=== PATIENT | female | born 1980 | race Caucasian/White ===

== ENCOUNTER 2018-03-27 09:39 | Emergency (ER) | payer BC ==
[~2018-03-27] VITALS: Ht 170.2 cm; Wt 86.4 kg
[2018-03-27 09:53] VITALS: TEMP 98.5
[2018-03-27] MEDS ORDERED: PROZAC 10MG10 MG PO (10:08)
[2018-03-27] MEDS ORDERED: PRINIVIL10 MG PO (10:08)
[2018-03-27] MEDS ORDERED: AMBIEN 5MG TABLE5 MG PO (10:09)
[2018-03-27] MEDS ORDERED: ZOFRAN ODT4 MG PO (14:25)
[2018-03-27] MEDS ORDERED: FIORICET 325 MG1 TA1 PO (14:25)
[2018-03-27] MEDS ORDERED: PHENERGAN 25 TA25 MG PO (14:25)
[2018-03-27 14:39] VITALS: BP 154/96; PULSE 78
== END 2018-03-27 14:39 | disposition home or self-care (01) ==
LOC: COL.ER 09:39
DX: G43.909 Migraine, unspecified, not intractable, without status migrainosus (principal); Z90.710 Acquired absence of both cervix and uterus
CPT/HCPCS: J1100; J1200; J1885; J2405; J2550; J3010; J7030; J7050

== ENCOUNTER 2018-07-28 13:48 | Emergency (ER) | payer BC ==
[~2018-07-28] VITALS: Ht 172.7 cm; Wt 81.9 kg
[~2018-07-28 13:48] MED LIST: AMBIEN 5MG TABLE5 MG PO; FIORICET 325 MG1 TA1 PO; PHENERGAN 25 TA25 MG PO; PRINIVIL10 MG PO; PROZAC 10MG10 MG PO; ZOFRAN ODT4 MG PO
[2018-07-28 13:53] VITALS: BP 148/104; TEMP 97.3
[2018-07-28 16:00] VITALS: PULSE 90
== END 2018-07-28 16:00 | disposition home or self-care (01) ==
LOC: COL.ER 13:48
DX: M62.830 Muscle spasm of back (principal); M54.5 Low back pain; G89.29 Other chronic pain; F41.9 Anxiety disorder, unspecified; I10 Essential (primary) hypertension; G47.00 Insomnia, unspecified; M51.36 Other intervertebral disc degeneration, lumbar region; Z79.899 Other long term (current) drug therapy
CPT/HCPCS: J1885

== ENCOUNTER 2019-03-13 09:22 | Emergency (ER) | payer OTHER ==
[~2019-03-13] VITALS: Ht 170.2 cm; Wt 77.3 kg
[2019-03-13] MEDS ORDERED: MASON NATURAL2000 IU PO (09:42)
[2019-03-13] MEDS ORDERED: XANAX .25M0.25 MG/TA PO (09:43)
[2019-03-13 10:31] LABS: BASO # 0.1 (0.0-0.2); BASO % 0.7 % (0.0-2.0); EOS # 0.1 (0.0-0.7); EOS % 1.3 % (0-4.0); GRAN # 4.2 (1.4-6.5); HEMATOCRIT 47.7 % (37.0-47.0); HEMOGLOBIN 16.5 g/dl (12.5-16.0); LYMPH # 1.9 (1.2-3.4); LYMPH % 28.5 % (20.0-51.0); MEAN CELL VOLUME 85 fl (80.0-100.0); MEAN CORPUSCULAR HEMOGLOBIN 29 pg (27.0-31.0); MEAN CORPUSCULAR HGB CONC 35 g/dl (33.0-37.0); MEAN PLATELET VOLUME 10.7 fl (7.4-10.4); MONO # 0.4 (0.1-0.6); MONO % 5.2 % (1.7-9.3); PLATELET COUNT 327 K/mm3 (130-400); RED BLOOD COUNT 5.64 M/mm3 (4.10-5.30); REDCELL DISTRIBUTION WIDTH-CV 12.7 % (11.5-14.5)
[2019-03-13 10:45] LABS: C-REACTIVE PROTEIN 1.1 mg/dL (0.0-0.9); CALCIUM 9.2 mg/dL (8.4-10.2); CREATININE, serum 0.63 (0.52-1.25); POTASSIUM 4.2 mmol/L (3.4-5.0)
[2019-03-13 11:03] LABS: ERYTHROCYTE SEDIMENTATION RATE 7 mm/hr (0-20)
[2019-03-13 11:41] VITALS: BP 145/77; PULSE 105; TEMP 98.7
== END 2019-03-13 12:09 | disposition home or self-care (01) ==
LOC: COL.ER 09:22
PROVIDERS: Physician Assistant
DX: M54.5 Low back pain (principal); Z90.710 Acquired absence of both cervix and uterus
CPT/HCPCS: J1885; J2405; J3010

== ENCOUNTER → 2019-04-20 | Outpatient (CLI) | payer OTHER ==
[~2019-04-20] MED LIST changes: +MASON NATURAL2000 IU PO; +XANAX .25M0.25 MG/TA PO
== END ==
LOC: COL.RAD 07:53
DX: I87.8 Other specified disorders of veins (principal); H93.A2 Pulsatile tinnitus, left ear
CPT/HCPCS: Q9967

== ENCOUNTER → 2019-05-12 | Outpatient (CLI) | payer OTHER | LOC: MC.RAD 07:52 | DX: Z12.31 Encounter for screening mammogram for malignant neoplasm of breast (principal); Z80.3 Family history of malignant neoplasm of breast ==

== ENCOUNTER 2019-08-14 09:36 | Emergency (ER) | payer OTHER ==
[~2019-08-14] VITALS: Ht 170.2 cm; Wt 83.2 kg
[2019-08-14 10:05] VITALS: TEMP 98.2
[2019-08-14] MEDS ORDERED: COZAAR 50MG50 MG/TAB PO (10:19)
[2019-08-14] MEDS ORDERED: AMOXICILLIN/CLA1 TA1 PO ×3 (10:19→10:26)
[2019-08-14 11:54] VITALS: BP 155/100; PULSE 83
== END 2019-08-14 12:00 | disposition home or self-care (01) ==
LOC: COL.ER 09:36
DX: R51 Headache (principal); Z86.69 Personal history of other diseases of the nervous system and sense organs
CPT/HCPCS: J1100; J1200; J1885; J2765; J7030

== ENCOUNTER 2019-09-08 11:53 | Inpatient (IN) | payer OTHER ==
[~2019-09-08] VITALS: Ht 170.2 cm; Wt 80.8 kg
[~2019-09-08 11:53] MED LIST changes: +AMOXICILLIN/CLA1 TA1 PO; +COZAAR 50MG50 MG/TAB PO
[2019-09-08 13:18] LABS: BASO # 0.1 (0.0-0.2); BASO % 0.6 % (0.0-2.0); EOS # 0.1 (0.0-0.7); EOS % 0.9 % (0-4.0); GRAN # 6.6 (1.4-6.5); GRAN % 74.1 % (42.2-75.2); HEMATOCRIT 46.5 % (37.0-47.0); LYMPH # 1.7 (1.2-3.4); LYMPH % 19.1 % (20.0-51.0); MEAN CELL VOLUME 85 fl (80.0-100.0); MEAN CORPUSCULAR HEMOGLOBIN 29 pg (27.0-31.0); MEAN CORPUSCULAR HGB CONC 34 g/dl (33.0-37.0); MEAN PLATELET VOLUME 10.1 fl (7.4-10.4); MONO # 0.4 (0.1-0.6); MONO % 4.5 % (1.7-9.3); PLATELET COUNT 372 K/mm3 (130-400); RED BLOOD COUNT 5.46 M/mm3 (4.10-5.30); REDCELL DISTRIBUTION WIDTH-CV 12.4 % (11.5-14.5)
[2019-09-08 13:25] LABS: PROTHROMBIN TIME 11.9 SECONDS (9.7-12.8)
[2019-09-08 13:32] LABS: ALBUMIN 4.8 gm/dL (3.5-5.0); BILIRUBIN,TOTAL 0.4 mg/dL (0.0-1.0); C-REACTIVE PROTEIN 0.9 mg/dL (0.0-0.9); CALCIUM 9.8 mg/dL (8.4-10.2); CREATININE, serum 0.54 (0.52-1.25); POTASSIUM 3.6 mmol/L (3.4-5.0); TOTAL PROTEIN 8.5 gm/dL (6.4-8.2)
--- NOTE | 2019-09-08 14:24 | NUR ---
REPORT RECEIVED FROM OTF HOYOS FROM ED DEPARTMENT.
--- NOTE | 2019-09-08 14:35 | NUR ---
PT BROUGHT OVER FROM ED BY OTF HOYOS. PT CURRENTLY HAS CARDENE GTT INFUSING AT 5MG/HR (50ML/HR)
[2019-09-08 14:45] VITALS: BP 161/108; PULSE 106; TEMP 98
[2019-09-08 16:00] VITALS: BP 121/93; PULSE 94; TEMP 98
[2019-09-08 17:00] VITALS: BP 122/81; PULSE 90
[2019-09-08 17:15] VITALS: BP 119/77; PULSE 100
--- NOTE | 2019-09-08 17:29 | NUR ---
CARDENE GTT TURNED OFF PER DR CAMEJO VERBAL ORDER FOR BP OF 121/102. RECHECK OFF CARDENE GTT TURNED OFF BP NOW 119/77
--- NOTE | 2019-09-08 19:00 | NUR ---
RECEIVED REPORT FROM ROMAIN SULLIVAN. PT SITTING UP IN BED WATCHING A MOVIE ON TABLET. DENIES ANY CANDELARIO AT THIS TIME. VSS. CALL LIGHT WITHIN REACH.
[2019-09-08 20:00] VITALS: BP 139/77; PULSE 87; TEMP 98.3
--- NOTE | 2019-09-08 21:13 | NUR ---
NOTIFIED NAPOLEON MAK OF PT'S BP INCREASING FROM 130S TO 170s AND PT STATES HER HEADACHE IS BACK. PT REQUESTS TO NOT BE BACK ON THE CARDENE GTT AND WANTS TO SEE IF SHE CAN HAVE SOMETHING ELSE. NAPOLEON MAK AWARE. RECEIVED NEW ORDERS. SEE MAR FOR ADMINISTRATION.
[2019-09-09] VITALS: BP 148/101; PULSE 77; TEMP 98.2
[2019-09-09 04:00] VITALS: BP 144/101; PULSE 88; TEMP 98
[2019-09-09 05:10] VITALS: BP 160/125; PULSE 101
[2019-09-09 05:40] LABS: CALCIUM 9.7 mg/dL (8.4-10.2); CREATININE, serum 0.55 (0.52-1.25); POTASSIUM 3.4 mmol/L (3.4-5.0)
[2019-09-09 08:30] VITALS: BP 146/110; PULSE 102; TEMP 98.3
--- NOTE | 2019-09-09 11:04 | NUR ---
[employer] student met with the patient to discuss a discharge plan. The patient lives in [place] with her , Bud, their kids and in-laws. The patient's PCP is Dr. White at [facility] and patient receives medications from [facility] with no difficulties. The patient does not have advanced directives in the EMR but was interested in a DPOA-HC form. Form provided. The patient plans to return home upon discharge with Bud providing transportation. There are not additional needs at this time.
[2019-09-09 12:00] VITALS: BP 135/99; PULSE 109
[2019-09-09] MEDS ORDERED: HCTZ12.5TAB PO (12:34)
[2019-09-09] MEDS ORDERED: NORVASC 10MG10 MG PO (12:34)
--- NOTE | 2019-09-09 14:09 | NUR ---
Discharge paperwork reviewed and IV site discontinued. Patient and present for this. They verbalize understanding. Patient given education on new medications and new low salt diet. Patient verbalizes understanding. Patient escorted out to emergency exit with to drive her home.
== END 2019-09-09 14:11 | disposition home or self-care (01) | DRG 305 ==
LOC: COL.ER 11:53 → ICU 13:46
PROVIDERS: Family Medicine; ADMIT Hospitalist
DX: I16.0 Hypertensive urgency (principal); F41.0 Panic disorder [episodic paroxysmal anxiety]; G47.00 Insomnia, unspecified; J32.9 Chronic sinusitis, unspecified; Z98.1 Arthrodesis status; Z90.710 Acquired absence of both cervix and uterus; Z90.89 Acquired absence of other organs; Z98.51 Tubal ligation status; Z87.891 Personal history of nicotine dependence
CPT/HCPCS: 99222-AI; 99239; J0360; J7050

== ENCOUNTER → 2019-09-21 | Outpatient (CLI) | payer OTHER ==
[~2019-09-21] MED LIST changes: +HCTZ12.5TAB PO; +NORVASC 10MG10 MG PO
== END ==
LOC: COL.VAS 08:00
DX: I10 Essential (primary) hypertension (principal); K80.20 Calculus of gallbladder without cholecystitis without obstruction

== ENCOUNTER 2020-06-22 21:48 | Emergency (ER) | payer OTHER ==
[~2020-06-22] VITALS: Ht 170.2 cm; Wt 83.2 kg
[2020-06-22 22:07] VITALS: TEMP 97.8
[2020-06-23 01:05] VITALS: BP 127/95; PULSE 104
== END 2020-06-23 01:05 | disposition home or self-care (01) ==
LOC: COL.ER 21:48
DX: R51 Headache (principal); M79.2 Neuralgia and neuritis, unspecified; I10 Essential (primary) hypertension; Z88.8 Allergy status to other drugs, medicaments and biological substances; Z88.1 Allergy status to other antibiotic agents; Z79.82 Long term (current) use of aspirin; Z79.83 Long term (current) use of bisphosphonates
CPT/HCPCS: J0780; J1200; J1885; Q9967

== ENCOUNTER → 2022-10-30 | Outpatient (CLI) | payer OTHER | LOC: COL.RAD 07:56 | DX: I10 Essential (primary) hypertension (principal) ==

== ENCOUNTER → 2023-11-08 | Outpatient (CLI) | payer OTHER | LOC: COL.RAD 08:21 | DX: K80.20 Calculus of gallbladder without cholecystitis without obstruction (principal); R16.1 Splenomegaly, not elsewhere classified ==

== ENCOUNTER → 2024-02-06 | Outpatient (CLI) | payer OTHER | LOC: MHCPAIN 10:00 | DX: M54.16 Radiculopathy, lumbar region (principal) ==

== ENCOUNTER → 2024-03-16 | Outpatient (CLI) | payer OTHER | LOC: MHCPAIN 11:57 | DX: M47.817 Spondylosis without myelopathy or radiculopathy, lumbosacral region (principal); M54.50 Low back pain, unspecified ==

== ENCOUNTER → 2024-03-25 | Outpatient (CLI) | payer OTHER ==
[~2024-03-25] MED LIST changes: +NORVASC 5MG5 MG/TAB PO
== END ==
LOC: MHCPAIN 14:59
DX: M47.816 Spondylosis without myelopathy or radiculopathy, lumbar region (principal); M51.26 Other intervertebral disc displacement, lumbar region; G96.191 Perineural cyst
CPT/HCPCS: G0463

== ENCOUNTER 2024-03-30 13:14 | Emergency (ER) | payer OTHER ==
[~2024-03-30] VITALS: Ht 170.2 cm; Wt 77.3 kg
[~2024-03-30 13:14] MED LIST changes: -NORVASC 5MG5 MG/TAB PO
[2024-03-30 13:18] VITALS: TEMP 98.3
[2024-03-30] MEDS ORDERED: hydrALAZINE 20 MG/ML 1 ML VIAL IV ONE (13:45)
[2024-03-30 14:03] LABS: BASO % 0.6 % (0.0-2.0); EOS % 0.3 % (0.0-4.0); GRAN # 4.8 K/mm3 (1.4-6.5); GRAN % 72.6 % (42.2-75.2); HEMATOCRIT 45.9 % (37.0-47.0); HEMOGLOBIN 15.5 g/dl (12.5-16.0); LYMPH # 1.4 K/mm3 (1.2-3.4); LYMPH % 21.2 % (20.0-51.0); MEAN CELL VOLUME 86 fl (80.0-100.0); MEAN CORPUSCULAR HEMOGLOBIN 29 pg (27-31); MEAN CORPUSCULAR HGB CONC 34 g/dl (33.0-37.0); MEAN PLATELET VOLUME 11.3 fl (7.4-10.4); MONO # 0.3 K/mm3 (0.1-0.6); PLATELET COUNT 307 K/mm3 (130-400); RED BLOOD COUNT 5.33 M/mm3 (4.10-5.30); REDCELL DISTRIBUTION WIDTH-CV 12.5 % (11.5-14.5)
[2024-03-30 14:11] LABS: INR 1.2 (0.8-3.0); PARTIAL THROMBOPLASTIN TIME 38.4 SECONDS (26.0-37.0); PROTHROMBIN TIME 12.7 SECONDS (9.7-12.8)
[2024-03-30 14:22] LABS: ALANINE AMINOTRANSFERASE 86 U/L (0-55); ALBUMIN 4.8 g/dL (3.5-5.0); ALKALINE PHOSPHATASE 83 U/L (40-150); ANION GAP 13 mmol/L (7-16); AST,SGOT 36 U/L (5-34); BILIRUBIN,TOTAL 0.8 mg/dL (0.2-1.2); BLOOD UREA NITROGEN 11 mg/dL (7-19); CALCIUM 9.2 mg/dL (8.4-10.2); CHLORIDE 107 mEq/L (98-107); CREATININE, serum 0.81 mg/dL (0.57-1.11); GLUCOSE 113 mg/dL (70-99); MAGNESIUM 2.2 mg/dL (1.6-2.6); POTASSIUM 3.3 mEq/L (3.5-4.5); SODIUM 142 mEq/L (136-145); TOTAL PROTEIN 8.2 g/dl (6.2-8.1)
[2024-03-30 14:33] LABS: TROPONIN-I < 0.010 ng/mL (0.00-0.033)
[2024-03-30] MEDS ORDERED: NORVASC 5MG5 MG/TAB PO (14:57)
[2024-03-30 15:30] VITALS: BP 143/100; PULSE 103
== END 2024-03-30 16:46 | disposition home or self-care (01) ==
LOC: COL.ER 13:14
PROVIDERS: Family Medicine
DX: I10 Essential (primary) hypertension (principal); R07.9 Chest pain, unspecified; Z79.899 Other long term (current) drug therapy
CPT/HCPCS: J0360

== ENCOUNTER → 2024-04-21 | Outpatient (CLI) | payer OTHER ==
[~2024-04-21] MED LIST changes: +NORVASC 5MG5 MG/TAB PO
== END ==
LOC: MHCPAIN 08:53
DX: M51.26 Other intervertebral disc displacement, lumbar region (principal); G96.191 Perineural cyst; M47.816 Spondylosis without myelopathy or radiculopathy, lumbar region
CPT/HCPCS: G0463